=== PATIENT | male | born 1965 | race Caucasian/White ===

== ENCOUNTER 2019-03-08 02:36 | Emergency (ER) | payer OTHER ==
[~2019-03-08] VITALS: Ht 177.8 cm; Wt 90.7 kg
--- NOTE | ~2019-03-08 | EMS ---
[address] [address] EMS Patient Care Report Name: ABIMAEL MCCALL Room #: DEP TEGAN Aceves#: [id number] Admission: 03/08/19 Attend Phys: Discharge: 03/08/19 Date of : 67 Report #: [id number] THIS REPORT FOR: //name// Report Transmitted: 03/08/2019 03:41 EMS Care Summary [place], [place]/[facility] Incident [id number] @ 03/08/2019 01:49 Incident Location [address] [place], [place] [id number] Patient ABIMAEL PHAN Male, 53 Years 1965 Patient Address Patient History None Reported, Patient Allergies No known allergies, Patient Medications None Reported, Chief Complaint [place], cp, tremors Disposition Transported No Lights/[place] Dis[place] Reason Convulsions/Seizure Transported To [facility] Narrative according to pt/ translators, pt suffered episode where he collapsed, had [place], cp, tremors. they report pt has history of same episodes before that were evaluated by neurologist and determined to be stress related. pt is apparently under alot of stress from employer. 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 pt is aox3, gcs 15. abc's intact, lungs clear. radial [place]/ [address] [address] EMS Patient Care Report Name: ABIMAEL MCCALL Room #: DEP [facility]#: [id number] Admission: 03/08/19 Attend Phys: Discharge: 03/08/19 Date of : 67 Report #: [id number] reg, skin warm/ dry. no changes in route. no trauma reported. Initial Vitals @02:17P: 74,CO: 0,SpO2: 96, @02:11P: 70,BP: 153/93,CO: 1,SpO2: 100, @02:17P: 74,CO: 0,SpO2: 96, @02:30P: 61,R: 18,BP: 152/98,Pain: 5/10,GCS: 15,CO: 1,SpO2: 94,Revised Trauma: 12, @02:21P: 71,BP: 139/97,SpO2: 97, @02:02P: 80,R: 18,BP: 166/97,GCS: 15,Glucose: 99,SpO2: 96,Revised Trauma: 12, Assessments @02:02MENTAL:Person Oriented,Time Oriented,Event Oriented,Place Oriented,SKIN:HEENT:Head/Face: No Abnormalities,Eyes: No Abnormalities,Neck/Airway: No Abnormalities,LUNG SOUNDS:General: No Abnormalities,ABDOMEN:General: No Abnormalities,PELVIS//GI:No Abnormalities,EXTREMITIES:Capillary Refill: Right Upper: < 2 Sec,Left Arm: No Abnormalities,Right Arm: No Abnormalities,Left Leg: No Abnormalities,Right Leg: No Abnormalities,PULSE:Radial: 2+ Normal,NEURO:Tremors, Impression Headache Procedures @02:02ALS AssessmentResponse: UnchangedSucceeded@02:113-Lead ECGResponse: UnchangedSucceeded@02:1812-Lead ECGResponse: UnchangedSucceeded@02:22Saline Lock 0cc (20 ga) Site: Hand-LeftResponse: UnchangedSucceeded@PTAOxygen FlowRate: 15 Device: Non Re-breather Mask (NRB) Response: UnchangedSucceeded Timeline [employer],Oxygen FlowRate: 15 Device: Non Re-breather Mask (NRB) Response: UnchangedSucceeded, 01:46,Call Received 01:46,Dispatch Notified 01:49,Dispatched 01:50,En Route 01:58,On Scene 02:02,At Patient 02:02,ALS Assessment,Response: UnchangedSucceeded, 02:02,BP: 166/97 M,PULSE: 80,RR: 18 R,SPO2: 96 Ox,ETCO2: ,B,PAIN: ,GCS: 15, 02:11,3-Lead ECG,Response: UnchangedSucceeded, 02:11,BP: 153/93 M,PULSE: 70,RR: R,SPO2: 100 Ox,ETCO2: ,BG: ,PAIN: ,GCS: , 02:17,BP: / M,PULSE: 74,RR: R,SPO2: 96 Ox,ETCO2: ,BG: ,PAIN: ,GCS: , 02:17,BP: / M,PULSE: 74,RR: R,SPO2: 96 Ox,ETCO2: ,BG: ,PAIN: ,GCS: , 02:18,12-Lead ECG,Response: UnchangedSucceeded, [facility] [address] [place] [address] EMS Patient Care Report Name: ABIMAEL MCCALL Room #: [facility] TEGAN Aceves#: [id number] Admission: 03/08/19 Attend Phys: Discharge: 03/08/19 Date of : 67 Report #: [id number] 02:21,BP: 139/97 M,PULSE: 71,RR: R,SPO2: 97 Ox,ETCO2: ,BG: ,PAIN: ,GCS: , 02:22,Saline Lock 0cc 20 ga Site: Hand-Left,Response: UnchangedSucceeded, 02:24,Depart Scene 02:30,BP: 152/98 M,PULSE: 61,RR: 18 R,SPO2: 94 Ox,ETCO2: ,BG: ,PAIN: 5,GCS: 15, 02:31,At Destination 02:51,Call Closed Disclaimer v1.1 Copyright 2019 [employer] This EMS Care Summary contains data elements from the applicable legal record (which may be displayed differently). It is designed to provide pertinent information for the following purposes: continuity of care, clinical quality, and state data reporting. The complete legal record is available to ED staff and administrators of the receiving hospital in [facility]'s Patient Tracker. All data is provided "as is."
[2019-03-08] MEDS ORDERED: ANTIANXIETY MED (03:00)
[2019-03-08] MEDS ORDERED: [UNRECOGNIZED DRUG - REMARK] (03:00)
[2019-03-08 03:04] LABS: ABSOLUTE NEUTROPHILS 3.7 thou/uL (1.4-8.2); BASOPHILS 0.7 % (0.0-2.0); EOSINOPHILS 4.5 % (0.0-3.0); HEMATOCRIT 46.9 % (42.0-52.0); HEMOGLOBIN 15.6 gm/dL (14.0-18.0); LYMPHOCYTES 28.5 % (24.0-44.0); MCH 30.5 pg (26.0-34.0); MCHC 33.2 g/dL (28.0-37.0); MCV 91.9 fL (80.0-100.0); MONOCYTES 10.5 % (1.0-8.0); PLATELET COUNT 204 thou/uL (150-400); POLYS 55.8 % (36.0-66.0); RBC 5.11 mil/uL (4.50-6.00); RDW 13.7 % (10.5-14.5); WBC 6.7 thou/uL (4.0-11.0)
[2019-03-08 03:08] LABS: ANION GAP 9 mmol/L (7-16); BUN 17 mg/dL (7-18); CHLORIDE 103 mmol/L (98-107); CO2 28 mmol/L (21-32); CREATININE 1.1 mg/dL (0.7-1.3); GLUCOSE 103 mg/dL (74-106); SODIUM 140 mmol/L (136-145)
[2019-03-08 03:17] LABS: TROPONIN-I <0.06 ng/mL (<0.06)
[2019-03-08] MEDS ORDERED: XANAX 0.5 MG0.5 M1 PO (04:11)
[2019-03-08 04:19] VITALS: BP 123/82
--- NOTE | 2019-03-08 11:08 | EKG ---
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
--- NOTE | 2019-03-09 11:45 | EKG ---
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
== END 2019-03-08 04:24 | disposition home or self-care (01) ==
LOC: ER 02:36
PROVIDERS: Emergency Medicine
DX: F41.9 Anxiety disorder, unspecified (principal); R07.89 Other chest pain; Z87.891 Personal history of nicotine dependence